=== PATIENT | male | born 1975 | race Caucasian/White ===

== ENCOUNTER 2021-07-24 17:35 | Emergency (ER) | payer SELFPAY ==
[~2021-07-24] VITALS: Ht 182.9 cm; Wt 113.6 kg
--- NOTE | 2021-07-24 19:49 | PHYS DOC ---
Past Medical History Past Medical History: Hypertension General Adult EDM: Chief Complaint: SUICDAL IDEATION HPI: HPI: Patient is a 46 year old male who present to ER for evaluation suicidal ideation. Patient said he lived with his mom, he is not working. Patient got into argument with his mom last Wednesday, she kicked him out of the house. Patient has been sleeping in his car. Today he was seen at the [facility], became very depressed, he tried to inhale dustbuster to kill himself. Patient said he feels weak and dizzy, feels dehydrated so he came in here for evaluation. Patient is still suicidal. Patient denies any chest pain, no abdominal pain, no nausea vomiting. Review of Systems: Review of Systems: Constitutional: Denies fever or chills. [] Eyes: Denies change in visual acuity. [] HENT: Denies nasal congestion or sore throat. [] Respiratory: Denies cough or shortness of breath. [] Cardiovascular: Denies chest pain or edema. [] GI: Denies abdominal pain, nausea, vomiting, bloody stools or diarrhea. [] : Denies dysuria. [] Musculoskeletal: Denies back pain or joint pain. [] Integument: Denies rash. [] Neurologic: Denies headache, focal weakness or sensory changes. [] Endocrine: Denies polyuria or polydipsia. [] Lymphatic: Denies swollen glands. [] Psychiatric: Positive for depression, suicidal ideation. Heart Score: C/O Chest Pain: N/A Risk Factors: Risk Factors: DM, Current or recent (<one month) smoker, HTN, HLP, family history of CAD, obesity. Risk Scores: Score 0 - 3: 2.5% MACE over next 6 weeks - Discharge Home Score 4 - 6: 20.3% MACE over next 6 weeks - Admit for Clinical Observation Score 7 - 10: 72.7% MACE over next 6 weeks - Early Invasive Strategies Physical Exam: PE: Constitutional: Well developed, well nourished, no acute distress, non-toxic appearance. [] HENT: Normocephalic, atraumatic, bilateral external ears normal, oropharynx moist, no oral exudates, nose normal. [] Eyes: PERRLA, EOMI, conjunctiva normal, no discharge. [] Neck: Normal range of motion, no tenderness, supple, no stridor. [] Cardiovascular:Heart rate regular rhythm, no murmur [] Lungs & Thorax: Bilateral breath sounds clear to auscultation [] Abdomen: Bowel sounds normal, soft, no tenderness, no masses, no pulsatile masses. [] Skin: Warm, dry, no erythema, no rash. [] Back: No tenderness, no CVA tenderness. [] Extremities: No tenderness, no cyanosis, no clubbing, ROM intact, no edema. [] Neurologic: Alert and oriented X 3, normal motor function, normal sensory function, no focal deficits noted. [] Psychologic: Affect normal, patient is suicidal. Current Patient Data: Labs: Laboratory Tests Test 07/24/21 20:02 07/24/21 21:35 07/24/21 22:05 White Blood Count 17.3 x10^3/uL Red Blood Count 4.75 x10^6/uL Hemoglobin 15.4 g/dL Hematocrit 44.4 % Mean Corpuscular Volume 94 fL Mean Corpuscular Hemoglobin 32 pg Mean Corpuscular Hemoglobin Concent 35 g/dL Red Cell Distribution Width 13.9 % Platelet Count 242 x10^3/uL Neutrophils (%) (Auto) 82 % Lymphocytes (%) (Auto) 8 % Monocytes (%) (Auto) 9 % Eosinophils (%) (Auto) 1 % Basophils (%) (Auto) 0 % Neutrophils # (Auto) 14.1 x10^3/uL Lymphocytes # (Auto) 1.4 x10^3/uL Monocytes # (Auto) 1.6 x10^3/uL Eosinophils # (Auto) 0.1 x10^3/uL Basophils # (Auto) 0.1 x10^3/uL Sodium Level 137 mmol/L Potassium Level 3.9 mmol/L Chloride Level 100 mmol/L Carbon Dioxide Level 25 mmol/L Anion Gap 12 Blood Urea Nitrogen 14 mg/dL Creatinine 2.3 mg/dL Estimated GFR (Cockcroft-Gault) 30.8 BUN/Creatinine Ratio 6 Glucose Level 113 mg/dL Calcium Level 8.0 mg/dL Magnesium Level 2.3 mg/dL Total Bilirubin 0.8 mg/dL Aspartate Amino Transf (AST/SGOT) 23 U/L Alanine Aminotransferase (ALT/SGPT) 38 U/L Alkaline Phosphatase 82 U/L Total Protein 7.3 g/dL Albumin 3.5 g/dL Albumin/Globulin Ratio 0.9 Salicylates Level < 2.8 mg/dL Salicylate Last Dose Date Unk Salicylate Last Dose Time Unk Acetaminophen Level < 2.0 mcg/ml Acetaminophen Last Dose Date Unk Acetaminophen Last Dose Time Unk Ethyl Alcohol Level < 10 mg/dL SARS-CoV-2 Antigen (Rapid) Negative Urine Collection Type Unknown Urine Color Yellow Urine Clarity Clear Urine pH 6.5 Urine Specific [place] <=1.005 Urine Protein 100 mg/dL Urine Glucose (UA) Negative mg/dL Urine Ketones (Stick) Negative mg/dL Urine Blood Moderate Urine Nitrite Negative Urine Bilirubin Negative Urine Urobilinogen Dipstick 1.0 mg/dL Urine Leukocyte Esterase Small Urine RBC 1-2 /HPF Urine WBC 11-20 /HPF Urine Squamous Epithelial Cells Few /LPF Urine Transitional Epithelial Cells Few /LPF Urine Bacteria 0 /HPF Urine Mucus Slight /LPF Urine Opiates Screen Neg Urine Methadone Screen Neg Urine Barbiturates Neg Urine Phencyclidine Screen Neg Urine Amphetamine/Methamphetamine Neg Urine Benzodiazepines Screen Neg Urine Cocaine Screen Neg Urine Cannabinoids Screen Neg Urine Ethyl Alcohol Neg Current Medications Medications (Trade) Dose Ordered Sig/Jesika Route PRN Reason Start Time Stop Time Status Last Admin Dose Admin Sodium Chloride 1,000 ml @ 1,000 mls/hr 1X ONCE IV 07/24/21 20:00 07/24/21 20:59 DC 07/24/21 20:06 Sodium Chloride 1,000 ml @ 1,000 mls/hr 1X ONCE IV 07/24/21 22:45 07/24/21 23:44 07/24/21 22:33 Acetaminophen (Tylenol) 1,000 mg 1X ONCE PO 07/24/21 22:45 07/24/21 22:46 DC 07/24/21 22:46 Ceftriaxone Sodium (Rocephin) 1 gm 1X ONCE IVP 07/24/21 23:30 07/24/21 23:32 DC EKG: EKG: [] Radiology/Procedures: Radiology/Procedures: [] Course & Med Decision Making: Course & Med Decision Making Pertinent Labs and Imaging studies reviewed. (See chart for details) Patient is a 46-year-old male who present to ER due to suicidal ideation. Patient was found to be dehydrated, patient was given IV fluid in ER, patient was also found to have urinary tract infection. Patient was given 1 g of Rocephin IV. Patient will need to be on antibiotics for the next 10 days. Patient is medically clear to be placed in an inpatient psychiatric facility at this time, 11:30 PM on July 24, 2021. Patient was accepted for transfer to [facility] by Dr. Tello. Gilberto Disclaimer: Gilberto Disclaimer: This electronic medical record was generated, in whole or in part, using a voice recognition dictation system. Departure Departure Impression: Primary Impression: Suicidal ideation Additional Impression: Urinary tract infection Disposition: 02 [facility] (transferred to [facility], accepted by Dr. TELLO) Condition: STABLE Referrals: NO PCP (PCP) Scripts Cephalexin (KEFLEX) 500 Mg Capsule 1 CAP PO QID, #40 CAP Prov: JULISSA MICHAELS DO 07/25/21 JULISSA MICHAELS DO Jul 24, 2021 19:49
[2021-07-24] MEDS ORDERED: IV NORMAL SALINE 1000ML BAG 1,000 ML IV ONE ×2 (20:00→22:45)
[2021-07-24 20:14] LABS: BASO # 0.1 x10^3/uL (0.0-0.2); BASO % 0 % (0-3); EOS # 0.1 x10^3/uL (0.0-0.7); EOS % 1 % (0-3); HEMATOCRIT 44.4 % (39.0-53.0); HEMOGLOBIN 15.4 g/dL (13.0-17.5); LYMPH # 1.4 x10^3/uL (1.0-4.8); LYMPH % 8 % (24-48); MEAN CORPUSCULAR HEMOGLOBIN 32 pg (25-35); MEAN CORPUSCULAR HGB CONC 35 g/dL (31-37); MEAN CORPUSCULAR VOLUME 94 fL (79-100); MONO # 1.6 x10^3/uL (0.0-1.1); MONO % 9 % (0-9); NEUT # 14.1 x10^3/uL (1.8-7.7); NEUT % 82 % (31-73); PLATELET COUNT 242 x10^3/uL (140-400); RED BLOOD COUNT 4.75 x10^6/uL (4.30-5.70); RED CELL DISTRIBUTION WIDTH 13.9 % (11.5-14.5); WHITE BLOOD COUNT 17.3 x10^3/uL (4.0-11.0)
[2021-07-24 20:25] LABS: CREATININE 2.3 mg/dL (0.7-1.3); GFR 30.8; POTASSIUM 3.9 mmol/L (3.5-5.1)
[2021-07-24 20:29] LABS: ACETAMIN < 2.0 mcg/ml (10-30); ETHANOL < 10 mg/dL (0-10); SALIC < 2.8 mg/dL (2.8-20.0)
[2021-07-24 20:34] LABS: ALBUMIN 3.5 g/dL (3.4-5.0); ALBUMIN/GLOBULIN RATIO 0.9 (1.0-1.7); MAGNESIUM 2.3 mg/dL (1.8-2.4); TOTAL BILIRUBIN 0.8 mg/dL (0.2-1.0); TOTAL PROTEIN 7.3 g/dL (6.4-8.2)
[2021-07-24 22:36] LABS: BILIRUBIN,URINE NEGATIVE (NEG); CLARITY,URINE CLEAR; COLOR,URINE YELLOW; NITRITE,URINE NEGATIVE (NEG); PH,URINE 6.5 (<5.0-8.0); PROTEIN,URINE 100 mg/dL (NEG-TRACE)
[2021-07-24 22:43] LABS: BARBITURATES NEG (NEG); BENZODIAZEPINES NEG (NEG); CANNABINOIDS NEG (NEG); COCAINE NEG (NEG); METHADONE NEG (NEG); OPIATES NEG (NEG); PHENCYCLIDINE NEG (NEG)
[2021-07-24] MEDS ORDERED: ACETAMINOPHEN 500 MG TABLET PO ONE (22:45)
[2021-07-24 22:47] LABS: AMPHETAMINE/METHAMPHETAMINE NEG (NEG)
[2021-07-24 22:49] LABS: BACTERIA,URINE 0 /HPF (0-FEW)
[2021-07-24] MEDS ORDERED: cefTRIAXone IV Push 1 GM VIAL. IVP ONE (23:30)
[2021-07-25] MEDS ORDERED: CEPH500C PO (01:47)
[2021-07-25 02:35] VITALS: BP 137/74
--- NOTE | 2021-07-25 02:53 | EKG ---
[facility] [address] [place] [address] Test Date: 2021-07-24 Test Time: 21:54:11 Pat Name: DWAYNE BLAIR Department: Room: Gender: M Intensive Care Specialist: : [id number] Requested By: JULISSA MICHAELS Order Number: [id number] Reading MD: Measurements Intervals [place] Rate: 88 P: [place]: QRS: -18 QRSD: 110 T: 76 QT: 364 QTc: 444 Interpretive Statements ACCELERATED JUNCTIONAL RHYTHM LEFTWARD AXIS T ABNORMALITY IN HIGH LATERAL LEADS ABNORMAL ECG RI6.02 No previous ECG available for comparison
== END 2021-07-25 02:40 | disposition short-term general hospital (02) ==
LOC: ER 17:35
DX: R45.851 Suicidal ideations (principal); N39.0 Urinary tract infection, site not specified; I10 Essential (primary) hypertension; Z20.822 Contact with and (suspected) exposure to COVID-19
CPT/HCPCS: 36415; 80053; 80307; 80329; 81001; 83735; 85025; 87086; 87426; 93005; 96361; 96374; 99285; G0480; J0696; J7030; U0003; U0005